=== PATIENT | male | born 1935 | race Caucasian/White ===

== ENCOUNTER → 2017-06-15 | Day surgery (SDC) | payer MEDICARE, OTHER ==
[~2017-06-15] MED LIST: Lactated Ringers 1,000 ML IV SCH; Propofol 200 MG/20 ML SDV IV ONE
--- NOTE | 2017-06-15 09:10 | OR ---
DATE OF OPERATION: 06/15/2017 PREOPERATIVE DIAGNOSIS: FOLLOWUP POLYPS. POSTOPERATIVE DIAGNOSIS: FOLLOWUP POLYPS. SURGEON: Adonis Donaldson MD PROCEDURE: FULL-LENGTH COLONOSCOPY. 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 COMPLICATIONS: None. SPECIMEN: None. FINDINGS: 1. Full-length colonoscopy. 2. Byrd diverticulosis mild to moderate. 3. Poor prep. RECOMMENDATIONS: Followup colonoscopy on an as needed basis only. INDICATIONS: The patient was in for a physical. He is overdue for colonoscopy with a history of polyps. Dr. Wilburn sent him for such. DESCRIPTION OF PROCEDURE: The patient was prepped and draped, placed in the left lateral decubitus position. A lubricated Olympus colonoscope was inserted and easily advanced to the cecum. Direct visualization of the ileocecal valve and appendiceal orifice was accomplished. Bowel prep was poor as there was a lot of liquid stool. Most of this could be suctioned but there were areas with a lot of particulate matter that could not be. Upon withdrawal, throughout the length of the colon, I could find no signs of any polyps, mass, ulceration, bleeding sites, no vascular abnormalities or signs of colitis. He had a byrd diverticular disease worse on the sigmoid area as expected, but present in the right colon as well. No acute inflammatory changes. The rectal vault was unremarkable. Retroflexion of scope in the rectum showed no anal lesions. Air was suctioned. Scope was removed without complication. ZIYAD/RACHELLE /[id number]
== END ==
LOC: CC.SDS 07:05
PROVIDERS: ATTEND Family Medicine
DX: Z12.11 Encounter for screening for malignant neoplasm of colon (principal); K57.30 Diverticulosis of large intestine without perforation or abscess without bleeding; E78.5 Hyperlipidemia, unspecified; E55.9 Vitamin D deficiency, unspecified; Z79.82 Long term (current) use of aspirin; Z86.010 Personal history of colon polyps; Z95.0 Presence of cardiac pacemaker; Z79.899 Other long term (current) drug therapy
CPT/HCPCS: J2704; J7120

== ENCOUNTER 2021-04-18 15:14 | Emergency (ER) | payer MEDICARE, OTHER ==
[2021-04-18 16:20] LABS: CORONAVIRUS COVID-19 NAA POSITIVE (NEGATIVE)
[2021-04-18] MEDS ORDERED: diphenhydrAMINE 50 MG/ML SDV IVPUSH PRN (16:48)
[2021-04-18] MEDS ORDERED: methylPREDNISolone Sodium Succinate 125 MG/2 ML SDV IVPUSH PRN (16:48)
[2021-04-18] MEDS ORDERED: EPINEPHrine 1 MG/ML SDV IM PRN (16:48)
[2021-04-18] MEDS ORDERED: Famotidine 20 MG/2 ML SDV IVPUSH PRN (16:48)
--- NOTE | 2021-04-18 17:05 | EDM.PDOC ---
ED HPI GENERAL MEDICAL PROBLEM - General Chief Complaint: General Stated Complaint: weakness, falls Time Seen by Provider: 04/18/21 16:03 Source of Information: Reports: Patient History Limitations: Reports: No Limitations - History of Present Illness INITIAL COMMENTS - FREE TEXT/NARRATIVE: Akira is a pleasant 86 year old male who presents to the ED via EMS with c/o generalized weakness and falls. Reports he was attempting to get up from the chair and fell backwards hitting his head. He reports he was so weak, he was unable to get up on his own. He reports this weakness has worsened the last 4 days. He also reports he has had a cough and cold symptoms the last 4 days as well. Does have sinus congestion. Reports shortness of breath on exertion. Denies any chest pain or productive cough. Denies any dizziness, headache, N/V/D, urinary symptoms. Son also has similar symptoms. He reports he has been drinking ok, but doesn't have much of an appetite. He is vaccinated for Covid, but has not received Booster shot. Onset Date: 04/14/21 Duration: Getting Worse Location: Reports: Generalized Associated Symptoms: Reports: Cough, Fever/Chills, Loss of Appetite, Malaise, Shortness of Breath (on exertion only), Weakness. Denies: Confusion, Chest Pain, cough w sputum, Diaphoresis, Headaches, Nausea/Vomiting, Rash, Seizure, Syncope - Related Data Allergies Allergy/AdvReac Type Severity Reaction Status Date / Time No Known Allergies Allergy Verified 04/18/21 15:38 Home Meds: Home Meds Cholecalciferol (Vitamin D3) [Vitamin D3] 1,000 unit PO DAILY 06/10/17 [History] Garlic 1 tab PO DAILY 06/10/17 [History] Lovastatin 10 mg PO BEDTIME 06/10/17 [History] Magnesium 250 mg PO DAILY 06/10/17 [History] Multivitamin [Daily Miguel Ángel] 1 tab PO DAILY 06/10/17 [History] allopurinoL [Zyloprim] 100 mg PO BEDTIME 06/10/17 [History] polyethylene glycoL 3350 [MiraLAX] 17 gram PO DAILY 06/10/17 [History] Past Medical History Cardiovascular History: Reports: High Cholesterol, Pacemaker Gastrointestinal History: Reports: Celiac Disease Musculoskeletal History: Reports: Gout - Past Surgical History GI Surgical History: Reports: Colon Social & Family History - Family History Family Medical History: Unobtainable - Tobacco Use Tobacco Use Status *Q: Never Tobacco User - Caffeine Use Caffeine Use: Reports: None - Recreational Drug Use Recreational Drug Use: No ED ROS GENERAL - Review of Systems Review Of Systems: Comprehensive ROS is negative, except as noted in HPI. ED EXAM, GENERAL - Physical Exam Exam: See Below Exam Limited By: No Limitations General Appearance: Alert, WD/WN, No Apparent Distress Eye Exam: Bilateral Eye: EOMI, Normal Fundi, Normal Inspection, PERRL Nose: Nasal Swelling, Nasal Drainage, Clear Rhinorrhea Throat/Mouth: Normal Inspection, Normal Lips, Normal Teeth, Normal Gums, Normal Oropharynx, Normal Voice, No Airway Compromise Head: Atraumatic, Normocephalic Neck: Normal Inspection, Supple, Non-Tender, Full Range of Motion Respiratory/Chest: No Respiratory Distress, Lungs Clear, Normal Breath Sounds, No Accessory Muscle Use, Chest Non-Tender Cardiovascular: Normal Peripheral Pulses, Regular Rate, Rhythm, No Edema, No Gallop, No JVD, No Murmur, No Rub GI/Abdominal: Normal Bowel Sounds, Soft, Non-Tender, No Organomegaly, No Distention, No Abnormal Bruit, No Mass Back Exam: Normal Inspection, Full Range of Motion, NT Extremities: Normal Inspection, Normal Range of Motion, Non-Tender, Normal Capillary Refill, No Pedal Edema Neurological: Alert, Oriented, CN II-XII Intact, Normal Cognition, Normal Gait (unsteady), Normal Reflexes, No Motor/Sensory Deficits Psychiatric: Normal Affect, Normal Mood Skin Exam: Other (small abrasion to left hand) Course - Vital Signs Last Recorded V/S: Last Vital Signs Temp 100.5 F 04/18/21 15:28 Pulse 60 04/18/21 15:28 Resp 18 04/18/21 15:28 BP 159/66 H 04/18/21 15:28 Pulse Ox 94 L 04/18/21 15:28 - Orders/Labs/Meds Orders: Active Orders 24 hr Category Date Time Status Vital Signs [RC] Q15M Care 04/18/21 16:48 Active Head wo Cont [CT] Stat Exams 04/18/21 16:00 Taken EPINEPHrine [Adrenalin] Med 04/18/21 16:48 Active 0.3 mg IM ASDIRECTED PRN Famotidine [Pepcid] Med 04/18/21 16:48 Active 20 mg IVPUSH ASDIRECTED PRN Sodium Chloride 0.9% [Saline Flush] Med 04/18/21 17:30 Active 30 ml FLUSH ASDIRECTED diphenhydrAMINE [Benadryl] Med 04/18/21 16:48 Active 50 mg IVPUSH ASDIRECTED PRN methylPREDNISolone Sod Succ [Solu-MEDROL] Med 04/18/21 16:48 Active 125 mg IVPUSH ASDIRECTED PRN Medication Orders Diphenhydramine HCl (Diphenhydramine 50 Mg/Ml Sdv) 50 mg IVPUSH ASDIRECTED PRN PRN Reason: hypersensitivity reaction Epinephrine HCl (Epinephrine 1 Mg/Ml Sdv) 0.3 mg IM ASDIRECTED PRN PRN Reason: hypersensitivity reaction Famotidine (Famotidine 20 Mg/2 Ml Sdv) 20 mg IVPUSH ASDIRECTED PRN PRN Reason: hypersensitivity reaction Methylprednisolone Sodium Succinate (Methylprednisolone Sodium Succinate 125 Mg/2 Ml Sdv) 125 mg IVPUSH ASDIRECTED PRN PRN Reason: hypersensitivity reaction Sodium Chloride (Sodium Chloride 0.9% 10 Ml Syringe) 30 ml FLUSH ASDIRECTED [facility] Labs: Laboratory Tests 04/18/21 04/18/21 04/18/21 Range/Units 15:24 15:35 15:35 WBC 4.9 (4.0-11.0) 10^3/uL RBC 5.23 (4.50-6.00) x10^6/uL Hgb 15.9 (14.0-18.0) g/dL Hct 46.3 (42.0-52.0) % MCV 88.5 (83.0-97.0) fL MCH 30.4 (27.0-32.0) pg MCHC 34.3 (32.0-36.0) g/dL RDW Coeff of Esteban 12.4 (11.0-15.0) % Plt Count 137 L (150-400) 10^3/uL Immature Gran % (Auto) 0.2 (0.0-4.9) % Neut % (Auto) 56.7 (41-71) % Lymph % (Auto) 31.3 (24-44) % [place] % (Auto) 11.6 H (0-10) % Eos % (Auto) 0.2 (0-6) % Baso % (Auto) 0.0 (0-1) % Neut # (Auto) 2.79 (1.80-8.00) x10^3/uL Lymph # (Auto) 1.54 (0.60-5.00) 10^3/uL [place] # (Auto) 0.57 (0.00-1.50) 10^3/uL Eos # (Auto) 0.01 (0.00-1.50) 10^3/uL Baso # (Auto) 0.00 (0.00-0.50) 10^3/uL Immature Gran # (Auto) 0.01 (0.00-0.49) 10^3/uL Sodium 138 (136-145) mEq/L Potassium 3.8 (3.5-5.0) mEq/L Chloride 100 (98-106) mEq/L Carbon Dioxide 29 (21-32) mmol/L BUN 14 (7-18) mg/dL Creatinine 1.2 (0.7-1.3) mg/dL Est Cr Clr Drug Dosing 39.86 mL/min Estimated GFR (MDRD) 58 L (>=60) mL/min Glucose 136 H (75-99) mg/dL Calcium 10.2 H (8.4-10.1) mg/dL Total Bilirubin 0.4 (0.0-1.0) mg/dL AST 43 H (15-37) U/L ALT 46 (12-78) U/L Alkaline Phosphatase 97 (46-116) U/L C-Reactive Protein (0.2-0.8) mg/dL Total Protein 6.9 (6.4-8.2) g/dL Albumin 3.4 (3.4-5.0) g/dL Urine Color Yellow (YELLOW) Urine Appearance Clear (CLEAR) Urine pH 7.0 (4.5-8.0) Ur Specific [place] 1.025 H (1.003-1.020) Urine Protein Negative (NEGATIVE) mg/dL Urine Glucose (UA) Negative (NEGATIVE) mg/dL Urine Ketones Negative (NEGATIVE) mg/dL Urine Occult Blood Negative (NEGATIVE) Urine Nitrite Negative (NEGATIVE) Urine Bilirubin Negative (NEGATIVE) Urine Urobilinogen 0.2 (0.2-1.0) EU/dL Ur Leukocyte Esterase Negative (NEGATIVE) Influenza Type A RNA (NEGATIVE) Influenza Type B RNA (NEGATIVE) SARS-CoV-2 RNA (CONRADO) (NEGATIVE) 04/18/21 04/18/21 Range/Units 15:38 15:39 WBC (4.0-11.0) 10^3/uL RBC (4.50-6.00) x10^6/uL Hgb (14.0-18.0) g/dL Hct (42.0-52.0) % MCV (83.0-97.0) fL MCH (27.0-32.0) pg MCHC (32.0-36.0) g/dL RDW Coeff of Esteban (11.0-15.0) % Plt Count (150-400) 10^3/uL Immature Gran % (Auto) (0.0-4.9) % Neut % (Auto) (41-71) % Lymph % (Auto) (24-44) % [place] % (Auto) (0-10) % Eos % (Auto) (0-6) % Baso % (Auto) (0-1) % Neut # (Auto) (1.80-8.00) x10^3/uL Lymph # (Auto) (0.60-5.00) 10^3/uL [place] # (Auto) (0.00-1.50) 10^3/uL Eos # (Auto) (0.00-1.50) 10^3/uL Baso # (Auto) (0.00-0.50) 10^3/uL Immature Gran # (Auto) (0.00-0.49) 10^3/uL Sodium (136-145) mEq/L Potassium (3.5-5.0) mEq/L Chloride (98-106) mEq/L Carbon Dioxide (21-32) mmol/L BUN (7-18) mg/dL Creatinine (0.7-1.3) mg/dL Est Cr Clr Drug Dosing mL/min Estimated GFR (MDRD) (>=60) mL/min Glucose (75-99) mg/dL Calcium (8.4-10.1) mg/dL Total Bilirubin (0.0-1.0) mg/dL AST (15-37) U/L ALT (12-78) U/L Alkaline Phosphatase (46-116) U/L C-Reactive Protein 2.9 H (0.2-0.8) mg/dL Total Protein (6.4-8.2) g/dL Albumin (3.4-5.0) g/dL Urine Color (YELLOW) Urine Appearance (CLEAR) Urine pH (4.5-8.0) Ur Specific [place] (1.003-1.020) Urine Protein (NEGATIVE) mg/dL Urine Glucose (UA) (NEGATIVE) mg/dL Urine Ketones (NEGATIVE) mg/dL Urine Occult Blood (NEGATIVE) Urine Nitrite (NEGATIVE) Urine Bilirubin (NEGATIVE) Urine Urobilinogen (0.2-1.0) EU/dL Ur Leukocyte Esterase (NEGATIVE) Influenza Type A RNA Negative (NEGATIVE) Influenza Type B RNA Negative (NEGATIVE) SARS-CoV-2 RNA (CONRADO) Positive H (NEGATIVE) Meds: Medications Generic Name Dose Route Start Last Admin Trade Name Freq PRN Reason Stop Dose Admin Diphenhydramine HCl 50 mg 04/18/21 16:48 Diphenhydramine 50 Mg/Ml Sdv IVPUSH ASDIRECTED PRN hypersensitivity reaction Epinephrine HCl 0.3 mg 04/18/21 16:48 Epinephrine 1 Mg/Ml Sdv IM ASDIRECTED PRN hypersensitivity reaction Famotidine 20 mg 04/18/21 16:48 Famotidine 20 Mg/2 Ml Sdv IVPUSH ASDIRECTED PRN hypersensitivity reaction Methylprednisolone Sodium Succinate 125 mg 04/18/21 16:48 Methylprednisolone Sodium Succinate 125 Mg/2 Ml Sdv IVPUSH ASDIRECTED PRN hypersensitivity reaction Sodium Chloride 30 ml 04/18/21 17:30 Sodium Chloride 0.9% 10 Ml Syringe FLUSH ASDIRECTED SABINO Discontinued Medications Generic Name Dose Route Start Last Admin Trade Name Freq PRN Reason Stop Dose Admin CASIRIVIMAB/IMDEVIMAB 10 ml/ 110 mls @ 220 mls/hr 04/18/21 16:48 04/18/21 17:13 Sodium Chloride IV 04/18/21 17:17 220 mls/hr ONETIME ONE Administration Departure - Departure Time of Disposition: 17:35 Disposition: Home, Self-Care 01 Condition: Fair Clinical Impression: COVID-19, Generalized weakness - Discharge Information *PRESCRIPTION DRUG MONITORING PROGRAM REVIEWED*: Not Applicable *COPY OF PRESCRIPTION DRUG MONITORING REPORT IN PATIENT VINCE: Not Applicable Instructions: COVID-19 Frequently Asked Questions, Weakness, [id number] Referrals: PCP,Unknown [Primary Care Provider] - Forms: ED Department Discharge Additional Instructions: - Rest and push fluids - Recommend assistive device with ambulation - Tylenol or ibuprofen as needed - Recommend follow up for any worsening symptoms (any increased shortness of breath or difficulty breathing) or if you are unable to care for self at home - Return to ED for any emergent needs Sepsis Event Note (ED) - Evaluation Sepsis Screening Result: No Definite Risk - Focused Exam Vital Signs: Vital Signs Temp Pulse Resp BP Pulse Ox 04/18/21 15:28 100.5 F 60 18 159/66 H 94 L - Problem List & Annotations (1) COVID-19 SNOMED Code(s): 394782639 Code(s): U07.1 - COVID-19 Status: Acute Current Visit: Yes (2) Generalized weakness SNOMED Code(s): 52891262 Code(s): R53.1 - WEAKNESS Status: Acute Current Visit: Yes - My Orders Last 24 Hours: My Active Orders 04/18/21 16:00 Head wo Cont [CT] Stat 04/18/21 16:48 Vital Signs [RC] Q15M EPINEPHrine [Adrenalin] 0.3 mg IM ASDIRECTED PRN Famotidine [Pepcid] 20 mg IVPUSH ASDIRECTED PRN diphenhydrAMINE [Benadryl] 50 mg IVPUSH ASDIRECTED PRN methylPREDNISolone Sod Succ [Solu-MEDROL] 125 mg IVPUSH ASDIRECTED PRN 04/18/21 17:30 Sodium Chloride 0.9% [Saline Flush] 30 ml FLUSH ASDIRECTED - Assessment/Plan Last 24 Hours: My Active Orders 04/18/21 16:00 Head wo Cont [CT] Stat 04/18/21 16:48 Vital Signs [RC] Q15M EPINEPHrine [Adrenalin] 0.3 mg IM ASDIRECTED PRN Famotidine [Pepcid] 20 mg IVPUSH ASDIRECTED PRN diphenhydrAMINE [Benadryl] 50 mg IVPUSH ASDIRECTED PRN methylPREDNISolone Sod Succ [Solu-MEDROL] 125 mg IVPUSH ASDIRECTED PRN 04/18/21 17:30 Sodium Chloride 0.9% [Saline Flush] 30 ml FLUSH ASDIRECTED Assessment:: Covid 19 Generalized weakness Plan: 86 yo male presents to the ED with c/o generalized weakness and fall. Has also been having URI symptoms for the past 4 days. Has noted his weakness has progressively been worsening. Lab work all unremarkable except covid 19 positive. Discussed risks vs. benefits of monoclonal antibodies with patient, including EUA. Patient given fact sheet on Regen Cov. Patient wishes to proceed. Patient was given Regen Cov. VSS on RA. He will be discharged home to the care of his son, whom he lives with. He is advised to use a walker or cane as assistive device to prevent falls. He did feel he was safe to be discharged home. He is advised to follow up if his symptoms worsen or he feels he is unable to care for self safely in his home.
[2021-04-18] MEDS ORDERED: Sodium Chloride 0.9% 10 ML Syringe FLUSH SCH (17:30)
== END 2021-04-18 19:05 | disposition home or self-care (01) ==
LOC: CC.ED 15:14
DX: U07.1 COVID-19 (principal); R53.1 Weakness; M10.9 Gout, unspecified; E78.00 Pure hypercholesterolemia, unspecified; I10 Essential (primary) hypertension; Z79.899 Other long term (current) drug therapy
CPT/HCPCS: 0240U; 36415; 70450; 80053; 81003; 85025; 86140; 99285; M0243; Q0243